=== PATIENT | male | born 1950 | race Two or more races ===

== ENCOUNTER 2023-12-05 14:57 | Emergency (ER) | payer OTHER ==
[~2023-12-05] VITALS: Ht 165.1 cm; Wt 76.2 kg
[~2023-12-05 14:57] MED LIST: TOPROL XL50 M1 PO
[2023-12-05] MEDS ORDERED: MONTELUKAST SOD10 MG PO (18:01)
== END 2023-12-05 18:12 | disposition home or self-care (01) ==
LOC: ER 14:58
DX: J31.0 Chronic rhinitis (principal); I10 Essential (primary) hypertension

== ENCOUNTER → 2024-04-02 | Emergency (ER) | payer OTHER ==
[~2024-04-02] VITALS: Ht 165.1 cm; Wt 79.4 kg
[~2024-04-02] MED LIST changes: +METHYLPREDNISOLONE SOD SUCC 40 MG VIAL IM ONE; +MONTELUKAST SOD10 MG PO; +NEURONTIN300 MG PO
[2024-04-02 14:08] VITALS: BP 128/74; O2SAT 95
== END | disposition home or self-care (01) ==
LOC: ER 12:11
DX: M79.674 Pain in right toe(s) (principal); I10 Essential (primary) hypertension; M10.9 Gout, unspecified